=== PATIENT | male | born 1995 | race American Indian/Alaskan Native ===

== ENCOUNTER 2017-07-21 17:28 | Emergency (ER) | payer MEDICAID, OTHER ==
[2017-07-21 17:29] VITALS: BMI 22.0
[2017-07-21 17:41] VITALS: PULSE 88; RESP 16; TEMP 98.7; O2SAT 97
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
[2017-07-21 19:50] VITALS: BP 124/74
== END 2017-07-21 19:03 | disposition home or self-care (01) ==
LOC: ED 17:28
DX: M79.672 Pain in left foot (principal); F12.90 Cannabis use, unspecified, uncomplicated; Z72.0 Tobacco use

== ENCOUNTER 2017-09-18 11:06 | Emergency (ER) | payer MEDICAID, OTHER ==
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
[2017-09-18 11:40] VITALS: RESP 18; TEMP 98.8; BMI 22.4
[2017-09-18 12:20] LABS: URINE BILIRUBIN NEGATIVE (NEGATIVE); URINE BLOOD TRACE-INTACT (NEGATIVE); URINE GLUCOSE (UA) NEGATIVE (NEGATIVE); URINE LEUKOCYTE ESTERASE TRACE Leu/uL (NEGATIVE); URINE PROTEIN NEGATIVE mg/dL (<30 mg/dL); URINE UROBILINOGEN 0.2 E.U./dL (<1 E.U./dL)
[2017-09-18 12:21] LABS: URINE APPEARANCE CLEAR (CLEAR); URINE COLOR YELLOW (YELLOW)
[2017-09-18] MEDS ORDERED: cefTRIAXone (Rocephin) 250 mg Inj IM STA (12:34)
[2017-09-18 12:48] LABS: URINE BACTERIA FEW (NEG); URINE EPITHELIAL CELLS 0 - 2 /hpf (0-5)
[2017-09-18 13:20] VITALS: BP 130/73; PULSE 65; O2SAT 100
== END 2017-09-18 13:19 | disposition home or self-care (01) ==
LOC: ED 11:06
DX: N39.0 Urinary tract infection, site not specified (principal); Z20.2 Contact with and (suspected) exposure to infections with a predominantly sexual mode of transmission
CPT/HCPCS: 81001; 87086; 96372; 99283; J0696

== ENCOUNTER 2018-06-07 08:50 | Emergency (ER) | payer MEDICAID, OTHER ==
[2018-06-07 08:50] VITALS: BMI 22.0
[2018-06-07 09:09] VITALS: RESP 18; TEMP 97.8; O2SAT 100
--- NOTE | 2018-06-07 09:29 | ED PDOC ---
Arrival/HPI - General Chief Complaint: Male Genitourinary Time Seen by Provider: 06/07/18 08:59 Historian: Patient - History of Present Illness Narrative History of Present Illness (Text): A 23 year old male presents to the ED with a complaint of right testicular pain. He states that he is experiencing right testicular pain radiating to the right lower pelvic area and reports that the discomfort began yesterday. He reports unprotected sexual intercourse. Patient is requesting to be tested and treated for possible STD but does not want any HIV testing. Notes he only has sex with women, no men. Patient denies fevers, chills, headache, dizziness, chest pain, shortness of breath, dyspnea on exertion, cough, abdominal pain, nausea, vomiting, diarrhea/constipation, dark or bloody stool, back pain, neck pain, urinary/bowel changes, testicular swelling, penile discharge, dysuria, lesions, or any other complaint. Time/Duration: Other (Yesterday) Symptom Onset: Gradual Symptom Course: Unchanged Activities at Onset: Rest, Light Context: Home Past Medical History - Provider Review Nursing Documentation Reviewed: Yes - Infectious Disease Hx of Infectious Diseases: None - Cardiac Hx Cardiac Disorders: No - Pulmonary Hx Respiratory Disorders: No - Neurological Hx Neurological Disorder: No - HEENT Hx HEENT Disorder: Yes Other/Comment: NASAL FX - Renal Hx Renal Disorder: No - Endocrine/Metabolic Hx Endocrine Disorders: No - Hematological/Oncological Hx Blood Disorders: No - Integumentary Hx Dermatological Disorder: No - Musculoskeletal/Rheumatological Hx Musculoskeletal Disorders: Yes Hx Fractures: Yes - Psychiatric Hx Psychophysiologic Disorder: No Hx Substance Use: Yes - Anesthesia Hx Anesthesia: No Hx Anesthesia Reactions: No Hx Malignant Hyperthermia: No Family/Social History - Physician Review Nursing Documentation Reviewed: Yes Family/Social History: No Known Family HX Smoking Status: Heavy Smoker > 10 Cigarettes Daily Hx Alcohol Use: No Hx Substance Use: Yes Substance used: marijuana Allergies/Home Meds Allergies/Adverse Reactions: Allergies No Known Allergies Allergy (Verified 07/21/17 17:30) Review of Systems - Physician Review All systems were reviewed & negative as marked: Yes - Review of Systems Constitutional: absent: Fevers Respiratory: absent: SOB, Cough Cardiovascular: absent: Chest Pain, JOHNSON Gastrointestinal: absent: Abdominal Pain, Stool Changes, Diarrhea, Nausea, Vomiting Genitourinary Male: Other (Right testicular pain radiating to the right lower pelvic area.). absent: Dysuria, Urinary Output Changes Musculoskeletal: absent: Back Pain, Neck Pain Neurological: absent: Headache, Dizziness Physical Exam Vital Signs Reviewed: Yes Vital Signs Temp Pulse Resp BP Pulse Ox 06/07/18 08:50 97.8 F 68 18 123/64 100 Temperature: Afebrile Blood Pressure: Normal Pulse: Regular Respiratory Rate: Normal Appearance: Positive for: Well-Appearing, Non-Toxic, Comfortable Pain Distress: None Mental Status: Positive for: Alert and Oriented X 3 - Systems Exam Head: Present: Atraumatic, Normocephalic Pupils: Present: PERRL Extroacular Muscles: Present: EOMI Conjunctiva: Present: Normal Ears: Present: Normal, NORMAL TM, Normal Canal. No: Erythema, TM Bulging Mouth: Present: Moist Mucous Membranes Pharnyx: Present: Normal. No: ERYTHEMA, EXUDATE, TONSILS ENLARGED, Peritonsilar Swelling, Uvular Deviation, Muffled/Hoarse Voice Nose (External): Present: Atraumatic. No: Abrasion, Contusion Nose (Internal): Present: Normal Inspection Neck: Present: Normal Range of Motion. No: Meningeal Signs, MIDLINE TENDERNESS Respiratory/Chest: Present: Clear to Auscultation, Good Air Exchange. No: Respiratory Distress, Accessory Muscle Use Cardiovascular: Present: Regular Rate and Rhythm, Normal S1, S2. No: Murmurs Abdomen: No: Tenderness, Distention, Peritoneal Signs Genitourinary Male: Present: Testicle Tenderness (Right sided testicular tenderness on palpation). No: Lesions, Penile Discharge, Penile Swelling, Masses, Erythema, Hernias, Testicle Swelling Back: Present: Normal Inspection. No: CVA Tenderness, Midline Tenderness Upper Extremity: Present: Normal Inspection, Normal ROM, NORMAL PULSES, Neurovascularly Intact. No: Cyanosis, Edema Lower Extremity: Present: Normal Inspection, NORMAL PULSES, Normal ROM, Neurovascularly Intact. No: Edema, CALF TENDERNESS Neurological: Present: GCS=15, CN II-XII Intact, Speech Normal Skin: Present: Warm, Dry, Normal Color. No: Rashes Lymphatic: No: Cervical Adenopathy, Inguinal Adenopathy Psychiatric: Present: Alert, Oriented x 3, Normal Insight, Normal Concentration Medical Decision Making ED Course and Treatment: 06/07/18 09:29 Impression: A 23 year old male presents to the ED with a complaint of right sided testicular pain since yesterday. States he only wants rx for STD and is refusing bloodwork. No abd ttp on exam, only R testicular pain, No fall or trauma to testicle. No meningeal signs, fevers chills or night sweats. Likely epidimyitis w/ STD. No rash on hand, ulcer or lymphadenopathy. Plan: -- Testicular Ultrasound -- Urinalysis -- Labs -- Reassess and disposition Prior Visits: Notes and results from previous visits were reviewed. Progress Notes: 06/07/18 10:07 Urine w/ WBCs - UTI no CVAT Testicular Ultrasound Dictator : Abbie Zamudio MD Report Date : 06/07/2018 10:40:54 IMPRESSION: 1. No evidence for testicular mass or torsion. 2. Right epididymitis. 3. Right varicocele. 06/07/18 10:48 epididymitis on US, Will rx with rocephin and azithromycin Given abx for UTI at home, as well as return indications, followup. I stressed to patient the importance of safe sex, using condoms specifically and need to follow up with partners and inform them of potential std and need for testing. He is agreeable to plan. - Lab Interpretations I have reviewed the lab results: Yes - RAD Interpretation Radiology Orders: 06/07/18 09:13 TESTES DUPLEX COMPLETE [US] Stat - Scribe Statement The provider has reviewed the documentation as recorded by the Scribe Debbie Yañez Provider Scribe Attestation: All medical record entries made by the Scribe were at my direction and personally dictated by me. I have reviewed the chart and agree that the record accurately reflects my personal performance of the history, physical exam, medical decision making, and the department course for this patient. I have also personally directed, reviewed, and agree with the discharge instructions and disposition. Disposition/Present on Arrival - Present on Arrival Any Indicators Present on Arrival: No History of DVT/PE: No History of Uncontrolled Diabetes: No Urinary Catheter: No History of Decub. Ulcer: No History Surgical Site Infection Following: None - Disposition Have Diagnosis and Disposition been Completed?: Yes Diagnosis: Epididymitis, Screen for STD (sexually transmitted disease), UTI (urinary tract infection) Disposition: HOME/ ROUTINE Disposition Time: 10:45 Condition: STABLE Discharge Instructions (ExitCare): Urinary Tract Infection, Adult (DC), Screening for Sexually Transmitted Infections, Epididymitis (ED), Testicle Pain (ED) Additional Instructions: USE CONDOMS WHEN HAVING SEX. TELL YOUR PARTNERS FOR POTENTIAL STD. SEE A UROLOGIST AND A MEDICINE DOCTOR OR THE ONES WE HAVE RECCOMENDED OLE. RETURN IF ANY OTHER ISSUES ARIANA LYNNE, thank you for letting us take care of you today. Your provider was Usman Crowe and you were treated for STD. The emergency medical care you received today was directed at your acute symptoms. If you were prescribed any medication, please fill it and take as directed. It may take several days for your symptoms to resolve. Return to the Emergency Department if your symptoms worsen, do not improve, or if you have any other problems. Please contact your doctor or call one of the physicians/clinics you have been referred to that are listed on the Patient Visit Information form that is included in your discharge packet. Bring any paperwork you were given at discharge with you along with any medications you are taking to your follow up visit. Our treatment cannot replace ongoing medical care by a primary care provider outside of the emergency department. Thank you for allowing the [facility] team to be part of your care today. If you had an X-Ray or CT scan: A Radiologist will review the ED reading if any change in treatment is needed we will contact you. If you had a blood, urine, or wound culture: It will take several days for the results, if any change in treatment is needed we will contact you. If you had an STI test: It will take 48 hours for the results. Please call after 1 week if you have not heard back. Prescriptions: Ciprofloxacin [Cipro] 500 mg PO BID 12 Days #24 tab Referrals: Conor Hood MD [Staff Provider] - Follow up with primary [facility] [Outside] - Follow up with primary [facility] [Outside] - Follow up with primary [facility] [place] - Follow up with primary Triny Vallecillo MD [Medical Doctor] - Follow up with primary Forms: [employer] (Ecuadorean)
[2018-06-07 09:44] LABS: URINE BILIRUBIN NEGATIVE (NEGATIVE); URINE BLOOD SMALL (NEGATIVE); URINE GLUCOSE (UA) NEGATIVE (NEGATIVE); URINE LEUKOCYTE ESTERASE SMALL Leu/uL (NEGATIVE); URINE PROTEIN TRACE mg/dL (<30 mg/dL); URINE UROBILINOGEN 0.2 E.U./dL (<1 E.U./dL)
[2018-06-07 09:47] LABS: URINE APPEARANCE CLEAR (CLEAR); URINE COLOR YELLOW (YELLOW)
[2018-06-07] MEDS ORDERED: cefTRIAXone (Rocephin) 250 mg Inj IM STA (09:48)
[2018-06-07 09:52] LABS: URINE BACTERIA MANY /hpf; URINE EPITHELIAL CELLS 0 - 2 /hpf (0-5); URINE WBC 15 - 20 /hpf (0-6)
--- NOTE | 2018-06-07 10:44 | US ---
Date of service: 06/07/2018 HISTORY: testicular pain TECHNIQUE: Realtime sonography through the scrotum with color and doppler flow. COMPARISON: None Available. FINDINGS: RIGHT TESTICLE: Measures 0.7 x 2.1 x 3.3 cm. Normal echotexture and flow. RIGHT EPIDIDYMIS: Epididymal head measures 0.3 x 1.1 x 1.8 cm and tail measures 3.4 x 1.9 x 3.2 cm. Enlarged with heterogeneous echotexture and diffuse increased vascularity on color flow imaging. LEFT TESTICLE: Measures 4.3 x 1.9 x 3.0 cm. Normal echotexture and flow. LEFT EPIDIDYMIS: Epididymal head measures 1.2 x 0.8 x 1.0 cm. Grossly unremarkable appearance with normal flow. HYDROCELE: None. VARICOCELE: There is a right varicocele. OTHER FINDINGS: None. IMPRESSION: 1. No evidence for testicular mass or torsion. 2. Right epididymitis. 3. Right varicocele.
[2018-06-07 10:58] VITALS: BP 125/66; PULSE 64
== END 2018-06-07 10:57 | disposition home or self-care (01) ==
LOC: ED 08:50
DX: N45.1 Epididymitis (principal); N39.0 Urinary tract infection, site not specified; Z11.3 Encounter for screening for infections with a predominantly sexual mode of transmission
CPT/HCPCS: 81001; 87086; 87491; 87591; 93975; 96372; 99283; J0696